=== PATIENT | female | born 1975 | race Caucasian/White ===

== ENCOUNTER 2019-09-20 20:17 | Observation (INO) ==
[2019-09-20] MEDS ORDERED: Aspirin 81 MG TAB.CHEW PO ONE (20:48)
[2019-09-20 21:03] LABS: Basophils % 0.6 %; Eosinophils # 0.2 K/mcL (0.0-0.6); Eosinophils % 2.6 %; Hematocrit 40.9 % (35.3-44.9); Hemoglobin 14.2 g/dL (11.5-15.4); Immature Granulocytes % 0.2 % (0-4); Lymphocytes # 2.4 K/mcL (0.6-4.6); Mean Corpuscular HGB Conc 34.7 g/dL (31.6-35.5); Mean Corpuscular Hemoglobin 31.3 pg (28.0-33.3); Mean Corpuscular Volume 90.1 fL (83.0-100.0); Mean Platelet Volume 10.5 fL (9.4-12.4); Monocytes # 0.3 K/mcL (0.0-1.3); Monocytes % 5.3 %; Neutrophils # 3.3 K/mcL (1.6-8.9); Platelet Count 232 K/mcL (140-400); Red Blood Count 4.54 M/mcL (3.82-4.97); Red Cell Distribution Width 13.1 % (11.5-14.5); Segmented Neutrophils % 53.3 %; White Blood Count 6.3 K/mcL (4.3-11.1)
[2019-09-20 21:21] LABS: BUN/Creatinine Ratio 18 (6-26); Blood Urea Nitrogen 14 mg/dL (6-20); Calcium 9.5 mg/dL (8.6-10.3); Carbon Dioxide 29 mEq/L (23-29); Chloride 105 mEq/L (98-107); Glucose 89 mg/dL (70-105); Osmolality,Calculated 292 (280-300); Sodium 141 mEq/L (136-145); eGFR For African Americans > 60 (> 60); eGFR For Non-African Americans > 60 (> 60)
[2019-09-20 21:23] LABS: Troponin I < 0.03 ng/mL (< 0.04)
[2019-09-20] MEDS ORDERED: Morphine Sulfate 2 MG/ML SYRINGE IVP STA (21:23)
[2019-09-20] MEDS ORDERED: Ondansetron 4 MG/2 ML VIAL IVP ONE (21:23)
[2019-09-20] MEDS ORDERED: Isovue-370 500 ML BOTTLE IVP ONE (21:46)
[2019-09-20] MEDS ORDERED: 0.9 % Sodium Chloride 1,000 ML IVC ONE (21:46)
[2019-09-20] MEDS ORDERED: Nitroglycerin 0.4 MG TAB.SUBL SL PRN (22:51)
[2019-09-20] MEDS ORDERED: *HR* FentaNYL (PF) 100 MCG/2 ML VIAL IVP STA (23:10)
[2019-09-20] MEDS ORDERED: Ondansetron 4 MG/2 ML VIAL IVP PRN (23:30)
[2019-09-21] MEDS ORDERED: Dextrose Gel 15 GM/37.5 ML TUBE PO PRN ×2 (01:52)
[2019-09-21] MEDS ORDERED: D5% in Water 1,000 ML IVC PRN (01:52)
[2019-09-21] MEDS ORDERED: *HR* Dextrose 50 % in Water (Syg) 50 ML SYRINGE IVP PRN (01:52)
[2019-09-21 05:26] LABS: Basophils % 0.5 %; Eosinophils % 2.5 %; Hematocrit 37.6 % (35.3-44.9); Hemoglobin 12.7 g/dL (11.5-15.4); Immature Granulocytes % 0.2 % (0-4); Lymphocytes % 35.5 %; Mean Corpuscular HGB Conc 33.8 g/dL (31.6-35.5); Mean Corpuscular Hemoglobin 30.8 pg (28.0-33.3); Mean Corpuscular Volume 91.3 fL (83.0-100.0); Mean Platelet Volume 10.3 fL (9.4-12.4); Monocytes % 4.8 %; Platelet Count 204 K/mcL (140-400); Red Blood Count 4.12 M/mcL (3.82-4.97); Red Cell Distribution Width 13.2 % (11.5-14.5); Segmented Neutrophils % 56.5 %; White Blood Count 5.6 K/mcL (4.3-11.1)
[2019-09-21 05:27] LABS: Eosinophils # 0.1 K/mcL (0.0-0.6); Monocytes # 0.3 K/mcL (0.0-1.3); Neutrophils # 3.2 K/mcL (1.6-8.9)
[2019-09-21 05:52] LABS: BUN/Creatinine Ratio 14 (6-26); Blood Urea Nitrogen 12 mg/dL (6-20); Calcium 8.8 mg/dL (8.6-10.3); Carbon Dioxide 26 mEq/L (23-29); Chloride 108 mEq/L (98-107); Chol/HDL Ratio 3.4 (0-4.9); Cholesterol 95 mg/dL (< 200); Glucose 128 mg/dL (70-105); HDL Cholesterol 28 mg/dL (40-59); LDL Cholesterol,Calculated 33 mg/dL (0-99); Osmolality,Calculated 293 (280-300); Potassium 3.7 mEq/L (3.5-5.1); Sodium 141 mEq/L (136-145); Triglycerides 168 mg/dL (< 150); eGFR For African Americans > 60 (> 60); eGFR For Non-African Americans > 60 (> 60)
[2019-09-21] MEDS ORDERED: Insulin LISPRO 300 UNITS/3 ML VIAL SQ SCH (06:00)
[2019-09-21] MEDS ORDERED: *HR* Heparin 5,000 UNIT/ML VIAL SQ SCH (06:00)
[2019-09-21 06:01] LABS: Thyroid Stimulating Hormone 3.741 mcIU/mL (0.340-5.600)
[2019-09-21] MEDS ORDERED: Perflutren Lipid Microsphere 1.3 ML in 0.9 % Sodium Chloride 8.7 ML IVP ONE (07:56)
[2019-09-21] MEDS ORDERED: SUMAtriptan succinate 50 MG TABLET PO PRN (08:33)
[2019-09-21] MEDS ORDERED: Acyclovir 200 MG CAPSULE PO SCH (09:00)
[2019-09-21] MEDS ORDERED: Ascorbic Acid 500 MG TABLET PO SCH (09:00)
[2019-09-21] MEDS ORDERED: hydroCHLOROthiazide 25 MG TABLET PO SCH (09:00)
[2019-09-21] MEDS ORDERED: Celecoxib 200 MG CAPSULE PO SCH (09:00)
[2019-09-21 09:59] LABS: Estimated Average Glucose 140 mg/dl
[2019-09-21 12:02] VITALS: BP 139/70
== END 2019-09-21 12:51 | disposition home or self-care (01) ==
LOC: EMEROOARM 20:17 → 3BNU 20:17 → SUATTDRO 23:24 → 3BNU 23:40
PROVIDERS: ADMIT Internal Medicine; ATTEND Internal Medicine